=== PATIENT | male | born 1970 | race Caucasian/White ===

== ENCOUNTER 2018-12-05 17:28 | Inpatient (IN) | payer MEDICAID ==
[2018-12-05 18:17] LABS: BASO # 0.1 K/uL (0.0-0.2); BASO % 0.9 % (0.0-2.0); EOS % 0.2 % (0.0-4.0); HEMOGLOBIN 15.8 g/dL (12.0-18.0); LYMPH # 1.2 K/uL (1.0-4.3); LYMPH % 13.7 % (20.0-40.0); MEAN CORPUSCULAR HEMOGLOBIN 32.6 pg (27.0-31.0); MEAN CORPUSCULAR HGB CONC 33.9 g/dL (33.0-37.0); MEAN PLATELET VOLUME 8.5 fL (7.2-11.7); MONO # 1.2 K/uL (0.0-0.8); MONO % 12.8 % (0.0-10.0); NEUT # 6.5 K/uL (1.8-7.0); NEUT % 72.4 % (50.0-75.0); RBC 4.87 Mil/uL (4.40-5.90); RED CELL DISTRIBUTION WIDTH 15.3 % (11.5-14.5)
[2018-12-05 18:45] LABS: BLOOD UREA NITROGEN 6 mg/dL (9-20); CALCIUM 8.7 mg/dl (8.6-10.4); GFR NON-AFRICAN AMERICAN > 60
--- NOTE | 2018-12-05 19:01 | C.PDOC ---
History Of Present Illness 48 year old male presents to the emergency department with complaints of left- sided chest pain that started this morning. Patient describes the chest pain as as tightness. He denies radiation of pain or shortness of breath. Patient also reports left arm numbness that lasted a few minutes but has since resolved. Patient admits to using cocaine and drinking alcohol yesterday at his brothers bachelor constitution party. Patient denies cardiac history, pulmonary history, and family history of heart disease. Patient states that he only smokes socially. Time Seen by Provider: 12/05/18 17:50 Chief Complaint (Nursing): Chest Pain History Per: Patient History/Exam Limitations: no limitations Onset/Duration Of Symptoms: Hrs Current Symptoms Are (Timing): Still Present Context: Other (drug use) Quality: Tightness ( ) Past Medical History Reviewed: Historical Data, Nursing Documentation, Vital Signs Vital Signs: Last Vital Signs Temp 97.9 F 12/05/18 17:43 Pulse 94 H 12/05/18 17:43 Resp 18 12/05/18 17:43 BP 154/98 H 12/05/18 17:43 Pulse Ox 94 L 12/05/18 17:43 - Medical History PMH: No Chronic Diseases Surgical History: No Surg Hx Family History: States: No Known Family Hx Denies: CAD - Social History Hx Tobacco Use: Yes Hx Alcohol Use: Yes Hx Substance Use: Yes - Immunization History Hx Tetanus Toxoid Vaccination: No Hx Influenza Vaccination: No Hx Pneumococcal Vaccination: No Review Of Systems Constitutional: Negative for: Fever, Chills Cardiovascular: Positive for: Chest Pain Neurological: Negative for: Weakness, Numbness Physical Exam - Physical Exam Appears: Non-toxic, No Acute Distress Skin: Normal Color, Warm, Dry Head: Atraumatic, Normacephalic Eye(s): bilateral: Normal Inspection, PERRL, EOMI Oral Mucosa: Moist Neck: Normal, Supple Chest: Symmetrical, No Tenderness Cardiovascular: Rhythm Regular, No Murmur Respiratory: Normal Breath Sounds, No Rales, No Rhonchi, No Wheezing Gastrointestinal/Abdominal: Soft, No Tenderness, No Guarding, No Rebound Extremity: Normal ROM Neurological/Psych: Oriented x3, Normal Speech, Normal Cognition, Normal Motor, Normal Sensation ED Course And Treatment - Laboratory Results Result Diagrams: 12/05/18 18:13 12/05/18 18:13 ECG: Interpreted By Me ECG Rhythm: Sinus Rhythm Interpretation Of ECG: normal axis, normal intervals, no ST/T changes Rate From EC O2 Sat by Pulse Oximetry: 94 (RA) Pulse Ox Interpretation: Normal - Radiology CXR: Interpreted by Me CXR Interpretation: Yes: Other (hypoinflation, moderate vascular congestion) Medical Decision Making Medical Decision Making: Plan: EKG Chemistry CBC CXR Nitrostat 0.4mg SL Tab Tylenol 975mg PO Labs, EKG, and CXR results reviewed. Patient with increase in troponin between 0 and 2 hours. Given this, and chronic dyspnea, will admit for further evaluation. Case discussed with Dr. Marin, hospitalist direct support professional caregiver, who accepts patient to his service. Disposition - Disposition Disposition Time: 17:50 Condition: STABLE - Clinical Impression Clinical Impression: Chest pain - Scribe Statement The provider has reviewed the documentation as recorded by the Scribe (Dinesh Lanier) Provider Attestation: All medical record entries made by the Scribe were at my direction and personally dictated by me. I have reviewed the chart and agree that the record accurately reflects my personal performance of the history, physical exam, medical decision making, and the department course for this patient. I have also personally directed, reviewed, and agree with the discharge instructions and disposition.
--- NOTE | 2018-12-05 21:40 | CP.PCM.HP ---
<Yoly Headley - Last Filed: 12/06/18 00:49> History of Present Illness - History of Present Illness History of Present Illness: CC: Chest pressure and left hand numbness Patient is a 48 year old male with pmhx of glaucoma and alcohol abuse presents to the ED with complaints of acute chest pressure and left hand numbness since early this evening. Patient reports he was walking and started experiencing central intermittent chest pressure, left hand numbness, and excessive sweating. Pt denies radiation of pain to neck or arm, nausea, similar symptoms previously. Patient reports he went to a constitution party last night and consumed excessive alcohol, as well as cocaine and marijuana. Patient reports chronic history of shortness of breath with cough, productive of white sputum. pmhx: glaucoma, alcohol abuse pshx: right eye surgery 5 days ago meds: prednisolone eye drops allergies: NKDA sochx: consumed 7 beers and 4 shots daily, cocaine/marijuana use last night, 5 cigs daily x30yrs, works construction famhx: heart disease, HTN, HLD, DM Present on Admission - Present on Admission Any Indicators Present on Admission: No Review of Systems - EENT Eyes: Other Visual Disturbances (discomfort in right eye s/p surgery) - Cardiovascular Cardiovascular: Chest Pain, Diaphoresis. absent: Claudication, Pain Radiating to Arm/Neck/Jaw, Leg Edema - Respiratory Respiratory: Cough, Dyspnea. absent: Hemoptysis - Gastrointestinal Gastrointestinal: absent: Diarrhea, Nausea Past Patient History - Past Social History Smoking Status: Heavy Smoker > 10 Cigarettes Daily - HEENT Hx HEENT Problems: Yes Hx Glaucoma: Yes - PSYCHIATRIC Hx Substance Use: Yes - SURGICAL HISTORY Hx Surgeries: Yes Hx Eye Surgery: Yes (GLAUCOMA) Meds Allergies/Adverse Reactions: Allergies Allergy/AdvReac Type Severity Reaction Status Date / Time No Known Allergies Allergy Verified 12/05/18 17:47 Physical Exam - Constitutional Appears: Non-toxic, No Acute Distress - Head Exam Head Exam: ATRAUMATIC, NORMAL INSPECTION, NORMOCEPHALIC - Eye Exam Eye Exam: Conjunctival injection. absent: Normal appearance (left eye swollen, right eye conjunctival injection. Both eyes tearing) - ENT Exam ENT Exam: Mucous Membranes Moist, Normal Exam - Neck Exam Neck exam: Positive for: Normal Inspection - Respiratory Exam Respiratory Exam: Decreased Breath Sounds, Clear to Auscultation Bilateral, NORMAL BREATHING PATTERN. absent: Wheezes Additional comments: shallow breaths - Cardiovascular Exam Cardiovascular Exam: REGULAR RHYTHM, +S1, +S2. absent: Tachycardia - GI/Abdominal Exam GI & Abdominal Exam: Distended, Normal Bowel Sounds, Soft. absent: Tenderness - Extremities Exam Extremities exam: Positive for: normal inspection. Negative for: calf tenderness, pedal edema - Neurological Exam Neurological exam: Alert, Oriented x3 - Psychiatric Exam Psychiatric exam: Normal Affect, Normal Mood - Skin Skin Exam: Dry, Intact, Normal Color, Warm Results - Vital Signs Recent Vital Signs: Last Vital Signs Temp 97.9 F 12/05/18 17:43 Pulse 90 12/05/18 20:45 Resp 16 12/05/18 19:03 BP 137/85 12/05/18 20:45 Pulse Ox 92 L 12/05/18 20:45 - Labs Result Diagrams: 12/05/18 18:13 12/05/18 18:13 Labs: Laboratory Results - last 24 hr 12/05/18 12/05/18 12/05/18 18:13 18:13 20:21 WBC 9.0 RBC 4.87 Hgb 15.8 Hct 46.7 MCV 96.0 H MCH 32.6 H MCHC 33.9 RDW 15.3 H Plt Count 207 MPV 8.5 Neut % (Auto) 72.4 Lymph % (Auto) 13.7 L [place] % (Auto) 12.8 H Eos % (Auto) 0.2 Baso % (Auto) 0.9 Neut # (Auto) 6.5 Lymph # (Auto) 1.2 [place] # (Auto) 1.2 H Eos # (Auto) 0.0 Baso # (Auto) 0.1 Sodium 133 Potassium 3.8 Chloride 96 L Carbon Dioxide 24 Anion Gap 17 BUN 6 L Creatinine 0.6 L Est GFR ( Amer) > 60 Est GFR (Non-Af Amer) > 60 Random Glucose 123 H Calcium 8.7 Troponin I < 0.0120 0.0200 Assessment & Plan - Assessment and Plan (Free Text) Assessment: 48 year old male with pmhx of glaucoma and alcohol abuse admitted for evaluation of acute onset chest pressure Plan: R/O ACS -telemetry monitoring -relief of symptoms following nitro -Dalia Q6 x3 -f/u EKG -f/u cardiac enzymes -f/u CXR -f/u echo -f/u UDS -f/u hgb A1C, TSH -crestor 10mg hs -ASA 81 qd -lasix 40mg ivp x1 -cardio consult Dr. Lopez Alcohol Abuse -CIWA -ativan 1mg ivp q6 prn -f/u liver function -vitamin repletion, multivits/folate/B SOB -O2, 2L NC prn -lasix 40mg ivp x1 Ppx -GI ppx, protonix -DVT ppx, heparin -HHD Discussed with Dr. Marin -Yoly Headley, PGY-1 <Charlie Marin - Last Filed: 12/06/18 06:29> Results - Vital Signs Recent Vital Signs: Last Vital Signs Temp 9705 F H 12/06/18 05:50 Pulse 100 H 12/06/18 05:50 Resp 20 12/06/18 05:50 BP 166/98 H 12/06/18 05:50 Pulse Ox 95 12/06/18 05:50 - Labs Result Diagrams: 12/05/18 18:13 12/05/18 23:24 Labs: Laboratory Results - last 24 hr 12/05/18 12/05/18 12/05/18 18:13 18:13 20:21 WBC 9.0 RBC 4.87 Hgb 15.8 Hct 46.7 MCV 96.0 H MCH 32.6 H MCHC 33.9 RDW 15.3 H Plt Count 207 MPV 8.5 Neut % (Auto) 72.4 Lymph % (Auto) 13.7 L [place] % (Auto) 12.8 H Eos % (Auto) 0.2 Baso % (Auto) 0.9 Neut # (Auto) 6.5 Lymph # (Auto) 1.2 [place] # (Auto) 1.2 H Eos # (Auto) 0.0 Baso # (Auto) 0.1 PT INR APTT Sodium 133 Potassium 3.8 Chloride 96 L Carbon Dioxide 24 Anion Gap 17 BUN 6 L Creatinine 0.6 L Est GFR ( Amer) > 60 Est GFR (Non-Af Amer) > 60 Random Glucose 123 H Calcium 8.7 Phosphorus Magnesium Total Bilirubin AST ALT Alkaline Phosphatase Total Creatine Kinase CK-MB (Mass) Troponin I < 0.0120 0.0200 NT-Pro-B Natriuret Pep Total Protein Albumin Globulin Albumin/Globulin Ratio Triglycerides Cholesterol LDL Cholesterol Direct HDL Cholesterol Vitamin B12 Folate TSH 3rd Generation Urine Opiates Screen Urine Methadone Screen Ur Barbiturates Screen Ur Phencyclidine Scrn Ur Amphetamines Screen U Benzodiazepines Scrn U Oth Cocaine Metabols U Cannabinoids Screen 12/05/18 12/05/18 12/05/18 23:24 23:24 23:24 WBC RBC Hgb Hct MCV MCH MCHC RDW Plt Count MPV Neut % (Auto) Lymph % (Auto) [place] % (Auto) Eos % (Auto) Baso % (Auto) Neut # (Auto) Lymph # (Auto) [place] # (Auto) Eos # (Auto) Baso # (Auto) PT 11.8 INR 1.1 APTT 32 Sodium 135 Potassium 3.7 Chloride 99 Carbon Dioxide 26 Anion Gap 14 BUN 5 L Creatinine 0.5 L Est GFR ( Amer) > 60 Est GFR (Non-Af Amer) > 60 Random Glucose 114 H Calcium 8.4 L Phosphorus 3.5 Magnesium 1.9 Total Bilirubin 0.5 AST 123 H ALT 109 H Alkaline Phosphatase 62 Total Creatine Kinase 703 H CK-MB (Mass) 5.16 H Troponin I < 0.0120 NT-Pro-B Natriuret Pep 20.6 Total Protein 7.1 Albumin 4.3 Globulin 2.8 Albumin/Globulin Ratio 1.6 Triglycerides 93 Cholesterol 199 LDL Cholesterol Direct 109 HDL Cholesterol 78 H Vitamin B12 202 L Folate 9.1 TSH 3rd Generation 0.84 Urine Opiates Screen Negative Urine Methadone Screen Negative Ur Barbiturates Screen Negative Ur Phencyclidine Scrn Negative Ur Amphetamines Screen Negative U Benzodiazepines Scrn Negative U Oth Cocaine Metabols Positive H U Cannabinoids Screen Positive H Assessment & Plan - Date & Time Date: 12/06/18 (I have seen and examined the patient. I agree with the findings and plan of care as documented by Dr. Headley. Patient with chest pain. ROMIx3 with EKG. Aspirin and Statin. Shortness of breath. Oxygen and nebs as needed. Chest xray. Alcohol abuse. CIWA protocol. Monitor for acute changes.) Time: 06:28 Attending/Attestation - Attestation I have personally seen and examined this patient.: Yes I have fully participated in the care of the patient.: Yes I have reviewed all pertinent clinical information: Yes
[2018-12-05 23:36] LABS: INR 1.1; PROTHROMBIN TIME 11.8 SECONDS (9.7-12.2)
[2018-12-05 23:44] LABS: ALB/GLOB RATIO 1.6 (1.0-2.1); ALBUMIN 4.3 g/dL (3.5-5.0); ALT/SGPT 109 U/L (21-72); AST/SGOT 123 U/L (17-59); BLOOD UREA NITROGEN 5 mg/dL (9-20); CALCIUM 8.4 mg/dl (8.6-10.4); GFR NON-AFRICAN AMERICAN > 60; HDL CHOLESTEROL 78 mg/dL (30-70)
[2018-12-05 23:49] LABS: BARBITURATES, UR NEGATIVE (NEGATIVE); BENZODIAZEPINES, UR NEGATIVE (NEGATIVE); OPIATES, UR NEGATIVE (NEGATIVE); PHENCYCLIDINE, UR NEGATIVE (NEGATIVE)
[2018-12-05 23:56] LABS: B-TYPE NATRIURETIC PEPTIDE 20.6 pg/mL (0-450); CK-MB 5.16 ng/mL (0.0-3.38); LDL CHOLESTEROL 109 mg/dL (0-129)
[2018-12-06] MEDS ORDERED: PrednisoLONE 1% Opht Susp(5 ml) OD STA (01:50)
[2018-12-06 02:59] LABS: FOLATE 9.1 ng/mL
[2018-12-06 05:51] VITALS: RESP 20
[2018-12-06 06:30] LABS: BASO # 0.1 K/uL (0.0-0.2); BASO % 0.8 % (0.0-2.0); EOS # 0.1 K/uL (0.0-0.7); EOS % 1.2 % (0.0-4.0); HEMOGLOBIN 16.7 g/dL (12.0-18.0); LYMPH # 1.5 K/uL (1.0-4.3); LYMPH % 19.6 % (20.0-40.0); MEAN CELL VOLUME 96.6 fL (80.0-94.0); MEAN CORPUSCULAR HEMOGLOBIN 32.8 pg (27.0-31.0); MEAN PLATELET VOLUME 9.1 fL (7.2-11.7); MONO # 1.2 K/uL (0.0-0.8); MONO % 16.2 % (0.0-10.0); NEUT # 4.7 K/uL (1.8-7.0); NEUT % 62.2 % (50.0-75.0); NRBC % 0.1 % (0.0-2.0); RBC 5.09 Mil/uL (4.40-5.90); RED CELL DISTRIBUTION WIDTH 15.8 % (11.5-14.5); WHITE BLOOD COUNT 7.6 K/uL (4.8-10.8)
[2018-12-06 06:51] LABS: ALB/GLOB RATIO 1.5 (1.0-2.1); ALBUMIN 4.6 g/dL (3.5-5.0); ALT/SGPT 119 U/L (21-72); AST/SGOT 129 U/L (17-59); BLOOD UREA NITROGEN 7 mg/dL (9-20); GFR NON-AFRICAN AMERICAN > 60
[2018-12-06 06:55] LABS: CK-MB 5.68 ng/mL (0.0-3.38)
--- NOTE | 2018-12-06 07:50 | RAD ---
Chest x-ray single frontal view HISTORY: Chest pain. COMPARISON: None available. FINDINGS: Mild to moderate venous congestion. Bilateral hilar prominence. Patchy increased markings in the medial inferior right lower lung zone. Enlarged ectatic aorta. Cardiomegaly. Biapical pleural thickening. Degenerative changes in the spine and shoulders. Question small loose body at the inferior right glenohumeral joint space. Impression: Mild to moderate venous congestion. Bilateral hilar prominence. Patchy increased markings in the medial inferior right lower lung zone. Enlarged ectatic aorta. Cardiomegaly. Biapical pleural thickening. Degenerative changes in the spine and shoulders. Question small loose body at the inferior right glenohumeral joint space.
[2018-12-06] MEDS: Multiple Vitamins Tab PO SCH (09:42)
[2018-12-06] MEDS: Vitamin B Complex/Vitamin C Tab PO SCH (09:42)
[2018-12-06] MEDS: PREDNISOLONE 1% OD SCH ×6 (09:42→22:45)
[2018-12-06] MEDS: Pantoprazole 40 mg EC Tab PO SCH (09:42)
--- NOTE | 2018-12-06 10:52 | CP.PCM.PN ---
<Ra Castillo - Last Filed: 12/06/18 19:12> Subjective - Date & Time of Evaluation Date of Evaluation: 12/06/18 Time of Evaluation: 08:30 - Subjective Subjective: PGY-[address] Son Garcia Patient is seen and examined at bedside. Patient states chest pain/chest pressure has improved. Patient states he wakes up in the morning with shortness of breath and coughing. Patient admits to snoring at night time, as he was told by those who live with him. Patient is ambulating. Patient denies fever, chills, palpitations, shortness of breath, n/v/d/c, abdominal pain, urinary symptoms or leg swelling or pain. Objective - Vital Signs/Intake and Output Vital Signs (last 24 hours): Temp Pulse Resp BP Pulse Ox 98.1 F 107 H 20 169/101 H 100 12/06/18 08:00 12/06/18 08:00 12/06/18 08:00 12/06/18 08:00 12/06/18 08:00 - Medications Medications: Current Medications Aspirin (Aspirin Chewable) 81 mg PO DAILY [facility] Last Admin: 12/06/18 09:42 Dose: 81 mg Folic Acid (Folic Acid) 1 mg PO DAILY [facility] Last Admin: 12/06/18 09:42 Dose: 1 mg Heparin Sodium (Porcine) (Heparin) 5,000 units SC Q8 [facility] Last Admin: 12/06/18 05:52 Dose: 5,000 units Home Med (Patient's Own Drops) 1 drop OD QID [facility] Last Admin: 12/06/18 09:42 Dose: 1 drop Influenza Virus Vaccine (Flucelvax Quad [id number] Syr) 60 mcg IM .ONCE ONE Stop: 12/09/18 14:01 Lorazepam (Ativan) 1 mg IVP Q6H [facility] Multivitamins (Hexavitamin) 1 tab PO DAILY [facility] Last Admin: 12/06/18 09:42 Dose: 1 tab Pantoprazole Sodium (Protonix Ec Tab) 40 mg PO DAILY [facility] Last Admin: 12/06/18 09:42 Dose: 40 mg Pneumococcal Polyvalent Vaccine (Pneumovax 23 Vaccine) 0.5 ml IM .ONCE ONE Stop: 12/09/18 14:01 Rosuvastatin Calcium (Crestor) 10 mg PO HS [facility] Last Admin: 12/05/18 23:00 Dose: 10 mg Vitamin B Complex/Vitamin C (Berocca) 1 tab PO DAILY [facility] Last Admin: 12/06/18 09:42 Dose: 1 tab - Labs Labs: 12/06/18 06:24 12/06/18 06:24 PT 11.8 SECONDS (9.7-12.2) 12/05/18 23:24 INR 1.1 12/05/18 23:24 APTT 32 SECONDS (21-34) 12/05/18 23:24 - Constitutional Appears: Non-toxic, No Acute Distress - Head Exam Head Exam: ATRAUMATIC, NORMAL INSPECTION, NORMOCEPHALIC - Eye Exam Eye Exam: EOMI Additional comments: left eye conjuctival hazy appearance Right eye erythema, tearing - ENT Exam ENT Exam: Mucous Membranes Moist - Neck Exam Neck Exam: Full ROM, Normal Inspection - Cardiovascular Exam Cardiovascular Exam: REGULAR RHYTHM, +S1, +S2 - GI/Abdominal Exam GI & Abdominal Exam: Distended, Soft, Normal Bowel Sounds. absent: Tenderness - Extremities Exam Extremities Exam: Full ROM - Back Exam Back Exam: Full ROM, NORMAL INSPECTION - Neurological Exam Neurological Exam: Alert, Awake, Normal Gait, Oriented x3 - Psychiatric Exam Psychiatric exam: Normal Affect, Normal Mood - Skin Skin Exam: Dry, Intact, Normal Color, Warm Assessment and Plan - Assessment and Plan (Free Text) Assessment: 48 year old male with pmhx of glaucoma and alcohol abuse admitted for evaluation of acute onset chest pressure, currently resolved, complaining of morning shortness of breath and cough, being worked up for CHF 2/2 alcohol abuse, drug use Plan: chest pressure R/O ACS vs CHF 2/2 drug use, alcohol abuse -telemetry -f/u EKG -NSR, possible left atrial enlargement -Given nitro at ED- improvement of symptoms -Dalia Q6 x3 - negative -CXR - Mild to moderate venous congestion, b/l hilar prominence, patchy increase marking medial inferior Rt lower lung zone. -12/06/18 echo - pending official results -UDS - positive for cocaine, cannabinoids -f/u hgb A1C - 5.9 -TSH - 0.84 Meds: -crestor 10mg hs -ASA 81 qd -lasix 40mg ivp x1 -lasix 20mg IVP BID -cardio consult Dr. Lopez -Avoid B blockers due to hx of cocaine use. Alcohol Abuse -[facility] protocol -ativan 1mg ivp q6 [facility] -Liver function - elevated liver enzymes -vitamin repletion, multivits/folate/B SOB, r/o CHF 2/2 drug use, alcohol abuse -O2, 2L NC prn -lasix 40mg ivp x1 - Lasix 20 mg IVP BID hx of glaucoma right eye - continue using home prednisone drops QID on affected eye PPX -GI ppx, protonix -DVT ppx, heparin -HHD Discussed with Dr Radha Castillo, PGY-1 <Son Garcia H - Last Filed: 12/07/18 07:34> Objective - Vital Signs/Intake and Output Vital Signs (last 24 hours): Temp Pulse Resp BP Pulse Ox 98.9 F 106 H 20 125/79 96 12/07/18 04:00 12/07/18 04:15 12/07/18 04:00 12/07/18 04:00 12/07/18 04:00 Intake and Output: 12/07/18 12/07/18 06:59 18:59 Intake Total 500 Output Total 800 Balance -300 - Medications Medications: Current Medications Aspirin (Aspirin Chewable) 81 mg PO DAILY [facility] Last Admin: 12/06/18 09:42 Dose: 81 mg Folic Acid (Folic Acid) 1 mg PO DAILY [facility] Last Admin: 12/06/18 09:42 Dose: 1 mg Furosemide (Lasix) 20 mg IVP Q12H [facility] Last Admin: 12/07/18 00:16 Dose: 20 mg Heparin Sodium (Porcine) (Heparin) 5,000 units SC Q8 [facility] Last Admin: 12/07/18 06:02 Dose: 5,000 units Home Med (Patient's Own Drops) 1 drop OD QID [facility] Last Admin: 12/06/18 22:45 Dose: 1 drop Influenza Virus Vaccine (Flucelvax Quad [id number] Syr) 60 mcg IM .ONCE ONE Stop: 12/09/18 14:01 Lorazepam (Ativan) 1 mg IVP Q6H [facility] Last Admin: 12/07/18 06:04 Dose: 1 mg Multivitamins (Hexavitamin) 1 tab PO DAILY [facility] Last Admin: 12/06/18 09:42 Dose: 1 tab Pantoprazole Sodium (Protonix Ec Tab) 40 mg PO DAILY [facility] Last Admin: 12/06/18 09:42 Dose: 40 mg Pneumococcal Polyvalent Vaccine (Pneumovax 23 Vaccine) 0.5 ml IM .ONCE ONE Stop: 12/09/18 14:01 Rosuvastatin Calcium (Crestor) 10 mg PO HS [facility] Last Admin: 12/06/18 22:45 Dose: 10 mg Vitamin B Complex/Vitamin C (Berocca) 1 tab PO DAILY [facility] Last Admin: 12/06/18 09:42 Dose: 1 tab - Labs Labs: 12/06/18 06:24 12/06/18 06:24 PT 11.8 SECONDS (9.7-12.2) 12/05/18 23:24 INR 1.1 12/05/18 23:24 APTT 32 SECONDS (21-34) 12/05/18 23:24 Attending/Attestation - Attestation I have personally seen and examined this patient.: Yes I have fully participated in the care of the patient.: Yes I have reviewed all pertinent clinical information, including history, physical exam and plan: Yes Notes (Text): 12/07/18 07:30 Medical attending: Patient was seen and examined by me. Agree with the above note by the resident The patient explains he does drink quite a bit of alcohol for some time now - and he was rather reluctant to explain clearly to us the extent of the drinking He also used cocaine during the and . There is concern he may have some cardiac mumur as well as him reporting ongoing LU. There is an echo ordered already We have to change the IV ativan from PRN to schedule as he will probably need it due to the alcohol history also the patient Son Garcia
--- NOTE | 2018-12-06 16:15 | CARD ---
APPROVED REPORT Date of service: 12/05/2018 EKG Measurement Heart [id number] ID [id number] <Conclusion> Normal sinus rhythm Possible Left atrial enlargement Borderline ECG
--- NOTE | 2018-12-06 16:44 | CARD ---
APPROVED REPORT Date of service: 12/06/2018 EXAM: Two-dimensional and M-mode echocardiogram with Doppler and color Doppler. INDICATION Chest Pain alcohol abuse, he of cocaine abuse RISK FACTORS Smoking 2D DIMENSIONS IVSd1.2 (0.7-1.1cm)LVDd4.5 (3.9-5.9cm) PWd1.2 (0.7-1.1cm)LA Txamtg66 (18-58mL) LVDs3.0 (2.5-4.0cm)FS (%) 34.8 % LVEF (%)64.2 (>50%)LVEF (Rivero's)56.70 % M-Mode DIMENSIONS Left Atrium (MM)3.73 (2.5-4.0cm)IVSd0.91 (0.7-1.1cm) Aortic Root3.69 (2.2-3.7cm)LVDd5.40 (4.0-5.6cm) Aortic Cusp Exc.2.57 (1.5-2.0cm)PWd1.09 (0.7-1.1cm) FS (%) 42 %LVDs3.14 (2.0-3.8cm) LVEF (%)72 (>50%) Mitral Valve MV E Pwxizaie01.2cm/sMV A Bmxngyob36.2cm/sE/A ratio0.7 TDI Lateral E' Peak V12.20cm/sMedial E' Peak V12.52cm/sE/Lateral E'4.2 E/Medial E'4.1 <Conclusion> poor window. normal size la,lv & ra rv. mild concentric lvh with normal lv systolic function with lvef of 55-60%. lv diastolic dysfunction grade one. grossly normal valves & function. no pericardial effusion. normal size aortic root.
--- NOTE | 2018-12-07 07:00 | CP.PCM.PN ---
Objective - Vital Signs/Intake and Output Vital Signs (last 24 hours): Temp Pulse Resp BP Pulse Ox 98.9 F 106 H 20 125/79 96 12/07/18 04:00 12/07/18 04:15 12/07/18 04:00 12/07/18 04:00 12/07/18 04:00 Intake and Output: 12/07/18 12/07/18 06:59 18:59 Intake Total 500 Output Total 800 Balance -300 - Medications Medications: Current Medications Aspirin (Aspirin Chewable) 81 mg PO DAILY [facility] Last Admin: 12/06/18 09:42 Dose: 81 mg Folic Acid (Folic Acid) 1 mg PO DAILY [facility] Last Admin: 12/06/18 09:42 Dose: 1 mg Furosemide (Lasix) 20 mg IVP Q12H [facility] Last Admin: 12/07/18 00:16 Dose: 20 mg Heparin Sodium (Porcine) (Heparin) 5,000 units SC Q8 [facility] Last Admin: 12/07/18 06:02 Dose: 5,000 units Home Med (Patient's Own Drops) 1 drop OD QID [facility] Last Admin: 12/06/18 22:45 Dose: 1 drop Influenza Virus Vaccine (Flucelvax Quad [id number] Syr) 60 mcg IM .ONCE ONE Stop: 12/09/18 14:01 Lorazepam (Ativan) 1 mg IVP Q6H [facility] Last Admin: 12/07/18 06:04 Dose: 1 mg Multivitamins (Hexavitamin) 1 tab PO DAILY [facility] Last Admin: 12/06/18 09:42 Dose: 1 tab Pantoprazole Sodium (Protonix Ec Tab) 40 mg PO DAILY [facility] Last Admin: 12/06/18 09:42 Dose: 40 mg Pneumococcal Polyvalent Vaccine (Pneumovax 23 Vaccine) 0.5 ml IM .ONCE ONE Stop: 12/09/18 14:01 Rosuvastatin Calcium (Crestor) 10 mg PO HS [facility] Last Admin: 12/06/18 22:45 Dose: 10 mg Vitamin B Complex/Vitamin C (Berocca) 1 tab PO DAILY [facility] Last Admin: 12/06/18 09:42 Dose: 1 tab - Labs Labs: 12/06/18 06:24 12/06/18 06:24 PT 11.8 SECONDS (9.7-12.2) 12/05/18 23:24 INR 1.1 12/05/18 23:24 APTT 32 SECONDS (21-34) 12/05/18 23:24
[2018-12-07] MEDS: Pantoprazole 40 mg EC Tab PO SCH (09:43)
[2018-12-07] MEDS: Multiple Vitamins Tab PO SCH (09:43)
[2018-12-07] MEDS: PREDNISOLONE 1% OD SCH (09:44)
[2018-12-07] MEDS: Vitamin B Complex/Vitamin C Tab PO SCH (09:44)
[2018-12-07 09:45] VITALS: O2SAT 96
[2018-12-07 11:39] VITALS: BP 160/86; PULSE 112; TEMP 98.2
[2018-12-07] MEDS ORDERED: Pneumococcal 23-Valent Vaccine IM ONE (12:02)
[2018-12-07] MEDS ORDERED: Influenza Vaccine 60 mcg/0.5 mL SYR (4YR UP) IM ONE (12:03)
--- NOTE | 2018-12-07 15:05 | CP.PCM.DIS ---
<Ra Castillo - Last Filed: 12/07/18 16:50> Provider - Provider Date of Admission: 12/05/18 21:08 Attending physician: Charlie Marin MD Consults: 12/06/18 08:00 Cardiology Consult Routine Comment: Consulting Provider: Mayo Lopez Consulting Physician: Mayo Lopez Reason for Consult: chest pain Time Spent in preparation of Discharge (in minutes): 180 Diagnosis - Discharge Diagnosis (1) Chest pain Status: Acute (2) Alcohol abuse Status: Acute (3) Shortness of breath Status: Acute (4) Prophylactic measure Status: Acute Hospital Course - Lab Results Lab Results: Most Recent Lab Values WBC 7.6 K/uL (4.8-10.8) 12/06/18 06:24 RBC 5.09 Mil/uL (4.40-5.90) 12/06/18 06:24 Hgb 16.7 g/dL (12.0-18.0) 12/06/18 06:24 Hct 49.2 % (35.0-51.0) 12/06/18 06:24 MCV 96.6 fL (80.0-94.0) H 12/06/18 06:24 MCH 32.8 pg (27.0-31.0) H 12/06/18 06:24 MCHC 34.0 g/dL (33.0-37.0) 12/06/18 06:24 RDW 15.8 % (11.5-14.5) H 12/06/18 06:24 Plt Count 210 K/uL (130-400) 12/06/18 06:24 MPV 9.1 fL (7.2-11.7) 12/06/18 06:24 Neut % (Auto) 62.2 % (50.0-75.0) 12/06/18 06:24 Lymph % (Auto) 19.6 % (20.0-40.0) L 12/06/18 06:24 [place] % (Auto) 16.2 % (0.0-10.0) H 12/06/18 06:24 Eos % (Auto) 1.2 % (0.0-4.0) 12/06/18 06:24 Baso % (Auto) 0.8 % (0.0-2.0) 12/06/18 06:24 Neut # (Auto) 4.7 K/uL (1.8-7.0) 12/06/18 06:24 Lymph # (Auto) 1.5 K/uL (1.0-4.3) 12/06/18 06:24 [place] # (Auto) 1.2 K/uL (0.0-0.8) H 12/06/18 06:24 Eos # (Auto) 0.1 K/uL (0.0-0.7) 12/06/18 06:24 Baso # (Auto) 0.1 K/uL (0.0-0.2) 12/06/18 06:24 PT 11.8 SECONDS (9.7-12.2) 12/05/18 23:24 INR 1.1 12/05/18 23:24 APTT 32 SECONDS (21-34) 12/05/18 23:24 Sodium 134 mmol/L (132-148) 12/06/18 06:24 Potassium 3.7 mmol/L (3.6-5.2) 12/06/18 06:24 Chloride 96 mmol/L (98-107) L 12/06/18 06:24 Carbon Dioxide 27 mmol/L (22-30) 12/06/18 06:24 Anion Gap 15 (10-20) 12/06/18 06:24 BUN 7 mg/dL (9-20) L 12/06/18 06:24 Creatinine 0.7 mg/dL (0.8-1.5) L 12/06/18 06:24 Est GFR ( Amer) > 60 12/06/18 06:24 Est GFR (Non-Af Amer) > 60 12/06/18 06:24 Random Glucose 99 mg/dL (75-110) 12/06/18 06:24 Hemoglobin A1c 5.9 % (4.2-6.5) 12/06/18 06:24 Calcium 9.0 mg/dl (8.6-10.4) 12/06/18 06:24 Phosphorus 3.5 mg/dL (2.5-4.5) 12/05/18 23:24 Magnesium 1.9 mg/dL (1.6-2.3) 12/05/18 23:24 Total Bilirubin 0.8 mg/dL (0.2-1.3) 12/06/18 06:24 AST 129 U/L (17-59) H 12/06/18 06:24 ALT 119 U/L (21-72) H 12/06/18 06:24 Alkaline Phosphatase 78 U/L (38-126) 12/06/18 06:24 Total Creatine Kinase 686 U/L (55-170) H 12/06/18 06:24 CK-MB (Mass) 5.68 ng/mL (0.0-3.38) H 12/06/18 06:24 Troponin I 0.0140 ng/mL (0.00-0.120) 12/06/18 06:24 NT-Pro-B Natriuret Pep 20.6 pg/mL (0-450) 12/05/18 23:24 Total Protein 7.7 g/dL (6.3-8.3) 12/06/18 06:24 Albumin 4.6 g/dL (3.5-5.0) 12/06/18 06:24 Globulin 3.1 gm/dL (2.2-3.9) 12/06/18 06:24 Albumin/Globulin Ratio 1.5 (1.0-2.1) 12/06/18 06:24 Triglycerides 93 mg/dL (0-149) 12/05/18 23:24 Cholesterol 199 mg/dL (0-199) 12/05/18 23:24 LDL Cholesterol Direct 109 mg/dL (0-129) 12/05/18 23:24 HDL Cholesterol 78 mg/dL (30-70) H 12/05/18 23:24 Vitamin B12 202 pg/mL (239-931) L 12/05/18 23:24 Folate 9.1 ng/mL 12/05/18 23:24 TSH 3rd Generation 0.84 mIU/L (0.46-4.68) 12/05/18 23:24 Urine Opiates Screen Negative (NEGATIVE) 12/05/18 23:24 Urine Methadone Screen Negative (NEGATIVE) 12/05/18 23:24 Ur Barbiturates Screen Negative (NEGATIVE) 12/05/18 23:24 Ur Phencyclidine Scrn Negative (NEGATIVE) 12/05/18 23:24 Ur Amphetamines Screen Negative (NEGATIVE) 12/05/18 23:24 U Benzodiazepines Scrn Negative (NEGATIVE) 12/05/18 23:24 U Oth Cocaine Metabols Positive (NEGATIVE) H 12/05/18 23:24 U Cannabinoids Screen Positive (NEGATIVE) H 12/05/18 23:24 - Hospital Course Hospital Course: On admission Patient is a 48 year old male with pmhx of glaucoma and alcohol abuse presents to the ED with complaints of acute chest pressure and left hand numbness since early this evening. Patient reports he was walking and started experiencing central intermittent chest pressure, left hand numbness, and excessive sweating. Pt denies radiation of pain to neck or arm, nausea, similar symptoms previously. Patient reports he went to a constitution party last night and consumed excessive alcohol, as well as cocaine and marijuana. Patient reports chronic history of shortness of breath with cough, productive of white sputum. On Hospitalization course Patient admitted for evaluation of acute onset chest pain. Patient placed on telemetry, patient given nitro at ED. Dalia x 3 negative, CXR shows Mild to moderate venous congestion, b/l hilar prominence, patchy increase marking medial inferior Rt lower lung zone. UDS - positive for cocaine, cannabinoids. Cardio consulted, Dr Lopez. Patient placed on crestor 10mg hs, ASA 81 Qd, lasix 20mg IVP BID. For hx of alcohol abuse, patient placed on CIWA protocol, ativan 1mg IVP q6 page, vitamin repeltion with multivitamins, folate. for patient complaint of SOB, echo was performed which shows no significant findings related to CHF. lvef of 55-60%. Patient on lasix as stated above. for hx of glaucoma right eye, we continue prednisone drops QID. patient placed on DVT prophylaxis with heparin, and GI prophylaxis with protonix. On Discharge: Patient is stable to discharge as per Dr Garcia. Patient is to continue taking his home medication. Patient has been given to start Norvasc 5mg, take one pill a day, dispense 30 pills. Patient has been informed to avoid beta laure medications due to his consumption of cocaine. Patient has been advised and recommended to avoid/stop alcohol, cocaine and marijuana use. Patient will be given information to establish care at the [facility] clinic located in the basement of the hospital. Please make an appointment in 5-7 days after discharge to continue your medical care outpatient. If your symptoms recur or worsen, please return to the ER. This is a brief summary of Patient's course of hospitalization. For more information, please refer to patient's EMR. - Date & Time of H&P Date of H&P: 12/05/18 Time of H&P: 21:45 Discharge Exam - Head Exam Head Exam: ATRAUMATIC, NORMAL INSPECTION, NORMOCEPHALIC - Eye Exam Eye Exam: EOMI, Normal appearance Additional comments: observed hazy aspect on left eye right eye erythema - ENT Exam ENT Exam: Mucous Membranes Moist, Normal Exam - Neck Exam Neck exam: Full Rom, Normal Inspection - Respiratory Exam Respiratory Exam: Decreased Breath Sounds, NORMAL BREATHING PATTERN. absent: Rales, Rhonchi, Wheezes - Cardiovascular Exam Cardiovascular Exam: Tachycardia, REGULAR RHYTHM, +S1, +S2 - GI/Abdominal Exam GI & Abdominal Exam: Normal Bowel Sounds, Unremarkable. absent: Tenderness - Extremities Exam Extremities exam: full ROM, normal inspection, pedal pulses present - Back Exam Back exam: NORMAL INSPECTION - Neurological Exam Neurological exam: Alert, Oriented x3, Reflexes Normal - Psychiatric Exam Psychiatric exam: Normal Affect, Normal Mood - Skin Skin Exam: Dry, Intact, Normal Color, Warm Discharge Plan - Discharge Medications Prescriptions: amLODIPine [Norvasc] 5 mg PO DAILY #30 tab - Follow Up Plan Condition: STABLE Disposition: HOME/ ROUTINE Instructions: Heart Healthy Diet, High Blood Pressure (DC), Chest Pain (DC), Amlodipine, Polysubstance Abuse (DC) Additional Instructions: Patient is stable to discharge as per Dr Garcia Patient is to continue taking his home medication. Patient has been given to start Norvasc 5mg, take one pill a day, dispense 30 pills. Patient has been informed to avoid beta laure medications due to his consumption of cocaine. Patient has been advised and recommended to avoid/stop alcohol, cocaine and marijuana use. Patient will be given information to establish care at the [facility] clinic located in the basement of the hospital. Please make an appointment in 5-7 days after discharge to continue your medical care outpatient. If your symptoms recur or worsen, please return to the ER El paciente es estable para el adis segn Dr Garcia El paciente debe continuar tomando jackman medicacin que mookie en casa Se le childress dado al paciente que comience a denzel Norvasc 5 mg, tome matty pastilla al da y dispense 30 pastillas. Se childress informado al paciente que evite los medicamentos bloqueadores beta debido a jackman consumo de cocana. Se childress recomendado y recomendado al paciente que evite / detenga el consumo de alcohol, cocana y marihuana. El paciente recibir informacin para establecer la atencin en la clnica localizada en el [facility], ubicada en el [facility]. Aide matty tati entre 5 y 7 singer despus del adis para continuar con jackman atencin mdica ambulatoria. Si marcus sntomas reaparecen o empeoran, vuelva a la gio de emergencias. [facility]: [phone] Referrals: [facility] at [facility] [Outside] <Son Garcia - Last Filed: 12/07/18 18:51> Provider - Provider Date of Admission: 12/05/18 21:08 Attending physician: Charlie Marin MD Consults: 12/06/18 08:00 Cardiology Consult Routine Comment: Consulting Provider: Mayo Lopez Consulting Physician: Mayo Lopez Reason for Consult: chest pain Hospital Course - Lab Results Lab Results: Most Recent Lab Values WBC 7.6 K/uL (4.8-10.8) 12/06/18 06:24 RBC 5.09 Mil/uL (4.40-5.90) 12/06/18 06:24 Hgb 16.7 g/dL (12.0-18.0) 12/06/18 06:24 Hct 49.2 % (35.0-51.0) 12/06/18 06:24 MCV 96.6 fL (80.0-94.0) H 12/06/18 06:24 MCH 32.8 pg (27.0-31.0) H 12/06/18 06:24 MCHC 34.0 g/dL (33.0-37.0) 12/06/18 06:24 RDW 15.8 % (11.5-14.5) H 12/06/18 06:24 Plt Count 210 K/uL (130-400) 12/06/18 06:24 MPV 9.1 fL (7.2-11.7) 12/06/18 06:24 Neut % (Auto) 62.2 % (50.0-75.0) 12/06/18 06:24 Lymph % (Auto) 19.6 % (20.0-40.0) L 12/06/18 06:24 [place] % (Auto) 16.2 % (0.0-10.0) H 12/06/18 06:24 Eos % (Auto) 1.2 % (0.0-4.0) 12/06/18 06:24 Baso % (Auto) 0.8 % (0.0-2.0) 12/06/18 06:24 Neut # (Auto) 4.7 K/uL (1.8-7.0) 12/06/18 06:24 Lymph # (Auto) 1.5 K/uL (1.0-4.3) 12/06/18 06:24 [place] # (Auto) 1.2 K/uL (0.0-0.8) H 12/06/18 06:24 Eos # (Auto) 0.1 K/uL (0.0-0.7) 12/06/18 06:24 Baso # (Auto) 0.1 K/uL (0.0-0.2) 12/06/18 06:24 PT 11.8 SECONDS (9.7-12.2) 12/05/18 23:24 INR 1.1 12/05/18 23:24 APTT 32 SECONDS (21-34) 12/05/18 23:24 Sodium 134 mmol/L (132-148) 12/06/18 06:24 Potassium 3.7 mmol/L (3.6-5.2) 12/06/18 06:24 Chloride 96 mmol/L (98-107) L 12/06/18 06:24 Carbon Dioxide 27 mmol/L (22-30) 12/06/18 06:24 Anion Gap 15 (10-20) 12/06/18 06:24 BUN 7 mg/dL (9-20) L 12/06/18 06:24 Creatinine 0.7 mg/dL (0.8-1.5) L 12/06/18 06:24 Est GFR ( Amer) > 60 12/06/18 06:24 Est GFR (Non-Af Amer) > 60 12/06/18 06:24 Random Glucose 99 mg/dL (75-110) 12/06/18 06:24 Hemoglobin A1c 5.9 % (4.2-6.5) 12/06/18 06:24 Calcium 9.0 mg/dl (8.6-10.4) 12/06/18 06:24 Phosphorus 3.5 mg/dL (2.5-4.5) 12/05/18 23:24 Magnesium 1.9 mg/dL (1.6-2.3) 12/05/18 23:24 Total Bilirubin 0.8 mg/dL (0.2-1.3) 12/06/18 06:24 AST 129 U/L (17-59) H 12/06/18 06:24 ALT 119 U/L (21-72) H 12/06/18 06:24 Alkaline Phosphatase 78 U/L (38-126) 12/06/18 06:24 Total Creatine Kinase 686 U/L (55-170) H 12/06/18 06:24 CK-MB (Mass) 5.68 ng/mL (0.0-3.38) H 12/06/18 06:24 Troponin I 0.0140 ng/mL (0.00-0.120) 12/06/18 06:24 NT-Pro-B Natriuret Pep 20.6 pg/mL (0-450) 12/05/18 23:24 Total Protein 7.7 g/dL (6.3-8.3) 12/06/18 06:24 Albumin 4.6 g/dL (3.5-5.0) 12/06/18 06:24 Globulin 3.1 gm/dL (2.2-3.9) 12/06/18 06:24 Albumin/Globulin Ratio 1.5 (1.0-2.1) 12/06/18 06:24 Triglycerides 93 mg/dL (0-149) 12/05/18 23:24 Cholesterol 199 mg/dL (0-199) 12/05/18 23:24 LDL Cholesterol Direct 109 mg/dL (0-129) 12/05/18 23:24 HDL Cholesterol 78 mg/dL (30-70) H 12/05/18 23:24 Vitamin B12 202 pg/mL (239-931) L 12/05/18 23:24 Folate 9.1 ng/mL 12/05/18 23:24 TSH 3rd Generation 0.84 mIU/L (0.46-4.68) 12/05/18 23:24 Urine Opiates Screen Negative (NEGATIVE) 12/05/18 23:24 Urine Methadone Screen Negative (NEGATIVE) 12/05/18 23:24 Ur Barbiturates Screen Negative (NEGATIVE) 12/05/18 23:24 Ur Phencyclidine Scrn Negative (NEGATIVE) 12/05/18 23:24 Ur Amphetamines Screen Negative (NEGATIVE) 12/05/18 23:24 U Benzodiazepines Scrn Negative (NEGATIVE) 12/05/18 23:24 U Oth Cocaine Metabols Positive (NEGATIVE) H 12/05/18 23:24 U Cannabinoids Screen Positive (NEGATIVE) H 12/05/18 23:24 Attending/Attestation - Attestation I have personally seen and examined this patient.: Yes I have fully participated in the care of the patient.: Yes I have reviewed all pertinent clinical information, including history, physical exam and plan: Yes Notes (Text): 12/07/18 18:50 Medical attending: Patient was seen and examined by me. Reviewed the above note by the resident PAtient had echo return and we reviewed this with him Also we again had a discussion with faviolas to alcohol, THC, and cocaine useage - that he is causing eventual harm to himself. He understands the risk of his behavior and will do whatever he can to stop Son Garcia
[2018-12-09] MEDS ORDERED: Influenza Vaccine 60 mcg/0.5 mL SYR (4YR UP) IM ONE (14:00)
[2018-12-09] MEDS ORDERED: Pneumococcal 23-Valent Vaccine IM ONE (14:00)
== END 2018-12-07 12:24 | disposition home or self-care (01) | DRG 203 ==
LOC: C.ER 17:28 → C.9E 21:08 → C.6T 12-06 00:38
PROVIDERS: ADMIT Family Medicine; ATTEND Family Medicine
DX: R07.89 Other chest pain (principal); F10.10 Alcohol abuse, uncomplicated; F12.90 Cannabis use, unspecified, uncomplicated; F17.210 Nicotine dependence, cigarettes, uncomplicated; F14.90 Cocaine use, unspecified, uncomplicated; H40.9 Unspecified glaucoma; R05 Cough; R06.02 Shortness of breath